=== PATIENT | female | born 1960 | race Two or more races ===

== ENCOUNTER 2018-09-09 20:12 | Inpatient (IN) | payer OTHER ==
[~2018-09-09] VITALS: Ht 165.1 cm; Wt 72.6 kg
[~2018-09-09 20:12] MED LIST: AMBIEN10 MG; ATIVAN2 M1; CIPRO500 MG PO; PYRIDIUM DS200 MG PO; RISPERDAL2 MG; SIMVASTATIN40 MG; TRAMADOL HCL-AP1 TAB PO; TRAZODONE HCL50 MG; VASOTEC5 MG; ZOLOFT100 MG
--- NOTE | 2018-09-09 20:26 | NUR ---
SE RECIBE PTE ALERTA Y ORIENTADA X3,REFIERE DOLOR EN EL AREA DEL ADOMEN ,DOLOR EN EL ANO ,REFIERE QUE LO TIENE CON ABRACIOENES.
--- NOTE | 2018-09-09 21:37 | NUR ---
PT ALERTA Y ORIENTADA X3 ESFERAS SE LE ORIENTA SOBRE TX Y REFIERE ENTEDER. SE ADMINISTRAN MEDICAMENTOS ORDENADOS. PT [place].
--- NOTE | 2018-09-10 00:27 | NUR ---
SE ORIENTA PACIENTE SOBRE TRATAMIENTO MEDICO EL CUAL REFIERE ENTENDER, SE REALIZA MUESTRA DE CHERYLE DE FORMAR ASEPTICA Y SE ADMINISTRA MEDICAMENTO RAAD ORDEN MEDICA.
== END 2018-09-12 11:32 | disposition home or self-care (01) | DRG 395 ==
LOC: ER 20:12 → SEC-K 09-10 10:09 → MEDJ 09-10 10:54 → MEDI 09-10 12:24
PROVIDERS: ADMIT Colon & Rectal Surgery
DX: K62.89 Other specified diseases of anus and rectum (principal); R10.32 Left lower quadrant pain

== ENCOUNTER 2018-10-07 20:16 | Emergency (ER) | payer OTHER ==
[~2018-10-07] VITALS: Ht 154.9 cm; Wt 74.4 kg
== END 2018-10-08 10:43 | disposition home or self-care (01) ==
LOC: ER 20:16
DX: K63.89 Other specified diseases of intestine (principal); K52.89 Other specified noninfective gastroenteritis and colitis; R10.814 Left lower quadrant abdominal tenderness

== ENCOUNTER → 2019-01-17 | Emergency (ER) | payer OTHER ==
[~2019-01-17] VITALS: Ht 154.9 cm; Wt 73.5 kg
[~2019-01-17] MED LIST changes: +KETO10TA2 PO
== END | disposition home or self-care (01) ==
LOC: ER 17:42
DX: S60.221A Contusion of right hand, initial encounter (principal); W18.09XA Striking against other object with subsequent fall, initial encounter; Y93.89 Activity, other specified; Y92.018 Other place in single-family (private) house as the place of occurrence of the external cause; Y99.8 Other external cause status

== ENCOUNTER 2019-08-01 05:05 | Emergency (ER) | payer OTHER ==
[~2019-08-01] VITALS: Ht 154.9 cm; Wt 73.9 kg
[2019-08-01] MEDS ORDERED: KETO10TA2 PO (06:15)
== END 2019-08-01 07:17 | disposition home or self-care (01) ==
LOC: ER 05:05
DX: M54.5 Low back pain (principal)

== ENCOUNTER 2019-08-07 22:32 | Emergency (ER) | payer OTHER ==
[~2019-08-07] VITALS: Ht 162.6 cm; Wt 69.4 kg
== END 2019-08-08 08:50 | disposition home or self-care (01) ==
LOC: ER 22:32
DX: E86.0 Dehydration (principal); R10.84 Generalized abdominal pain; R19.7 Diarrhea, unspecified

== ENCOUNTER 2019-10-06 09:47 | Day surgery (SDC) | payer OTHER ==
[~2019-10-06 09:47] MED LIST changes: +GABAPENTIN PO; +LEVO-T50 MCG PO
== END 2019-10-06 20:30 | disposition home or self-care (01) ==
LOC: CIR.AMB 09:47
DX: D12.9 Benign neoplasm of anus and anal canal (principal)

== ENCOUNTER 2020-07-12 10:28 | Outpatient (CLI) | payer OTHER | END 2020-07-12 15:00 | disposition home or self-care (01) | LOC: LAB 10:28 | PROVIDERS: ATTEND Colon & Rectal Surgery | DX: Z20.828 Contact with and (suspected) exposure to other viral communicable diseases (principal) ==

== ENCOUNTER 2024-03-21 12:00 | Emergency (ER) | payer OTHER ==
[~2024-03-21] VITALS: Ht 154.9 cm; Wt 86.2 kg
[2024-03-21] MEDS ORDERED: METHYLPREDNISOLONE SOD SUCC 125 MG VIAL IV ONE (13:00)
[2024-03-21] MEDS ORDERED: TRAMADOL HCL 50 MG TABLET PO ONE (13:00)
[2024-03-21] MEDS ORDERED: KETOROLAC TROMETHAMINE 15 MG VIAL IV ONE (13:00)
[2024-03-21] MEDS ORDERED: METHYLPREDNISOLONE SOD SUCC 125 MG VIAL ONE (13:01)
[2024-03-21] MEDS ORDERED: KETOROLAC TROMETHAMINE 30 MG VIAL ONE (13:01)
[2024-03-21 13:28] LABS: HEMATOCRIT 42.4 % (36.0-45.00); HEMOGLOBIN 14.1 g/dL (12.0-15.00); MEAN CELL VOLUME 91.6 fL (80.00-100.00); MEAN CORPUSCULAR HEMOGLOBIN 30.6 pg (27.00-32.0); MEAN CORPUSCULAR HGB CONC 33.4 g/dl (32.0-36.0); PLATELET COUNT 182 K/uL (150-450); RED BLOOD COUNT 4.63 M/uL (4.00-6.00); RED CELL DISTRIBUTION WIDTH 14.9 % (11.5-14.5)
[2024-03-21 13:41] LABS: ERYTHROCYTE SEDIMENTATION RATE 9 mm/hr
[2024-03-21 13:53] LABS: ANION GAP 6 (10.0-20.0); BLOOD UREA NITROGEN 12 mg/dL (7-18); BUN CREA RATIO 16 (7.0-25.0); CALCIUM 9.1 mg/dL (8.5-10.1); CARBON DIOXIDE 30 mEq/L (21-32); CHLORIDE 109 mmol/L (98-107); CREATININE SERUM 0.73 mg/dL (0.55-1.02); GFR 80.26; GLUCOSE FASTING 98 mg/dL (65-100); OSMOLALITY SERUM 281 MOSM/KG (275-295); POTASSIUM 4.07 mEq/L (3.5-5.1); SODIUM 141 mmol/L (136-145)
[2024-03-21 14:16] LABS: C-REACTIVE PROTEIN < 0.29 MG/DL (0.00-0.29)
== END 2024-03-21 16:21 | disposition left against medical advice (07) ==
LOC: ER 12:02
PROVIDERS: General Practice
DX: H15.009 Unspecified scleritis, unspecified eye (principal); I10 Essential (primary) hypertension; Z88.1 Allergy status to other antibiotic agents
CPT/HCPCS: 36415; 70450; 96365; 99284; J1885; J3490

== ENCOUNTER → 2025-05-18 | Day surgery (SDC) | payer OTHER ==
[~2025-05-18] MED LIST changes: +DIPHENHYDRAMINE HCL 50 MG/ML VIAL 1ML IV ONE; +MIDAZOLAM HCL 2 MG/2 ML VIAL IV ONE; +NALOXONE HCL 0.4 MG/ML AMPUL IV STA; +ONDANSETRON HCL 2 MG/ML VIAL IV ONE; +fentaNYL CITRATE 50 MCG/ML AMPUL IV PUSH ONE
== END | disposition home or self-care (01) ==
LOC: ADM 05-16 12:15 → AMB-ENDOS 06:00
PROVIDERS: ATTEND Colon & Rectal Surgery
DX: K57.32 Diverticulitis of large intestine without perforation or abscess without bleeding (principal); Z86.0100 Personal history of colon polyps, unspecified; R19.4 Change in bowel habit; Z88.8 Allergy status to other drugs, medicaments and biological substances